=== PATIENT | female | born 2000 | race Caucasian/White ===

== ENCOUNTER 2020-02-12 14:18 | Outpatient (REF) | payer MEDICAID, SELFPAY ==
[2020-02-15 18:59] LABS: SARS-CoV-2 RNA Undetected (Undetected); SARS-CoV-2 Specimen Source Nasopharynx
== END 2020-02-12 14:38 ==
LOC: NCHCN 14:18
PROVIDERS: PCP Family Medicine; Visit Provider Nurse Practitioner Family
DX: Z20.828 Contact with and (suspected) exposure to other viral communicable diseases (principal)
CPT/HCPCS: U0003

== ENCOUNTER 2021-04-05 17:04 | Outpatient (REF) | payer MEDICAID, SELFPAY ==
--- NOTE | 2021-04-05 14:20 | PAPFT_PTH ---
PATIENT: Rajinder Vazquez LOC: [facility] U#:[id number] AGE/SX: 21/F ROOM: RE04/05/[address]: Isabel Dorman : 2000 BED: DIS: 04/05/2021 SPEC #: [id number] RECD: 04/05/21 18:53 STATUS: TED REQ #: [id number] ONEAL: 04/05/21 14:[address]: Isabel Dorman DEPT: [facility] Cytology RECD BY: Maryanne Chao Tissues: 1 - CX/ENDOCX FOR PAP SMEARS Procedures: PAP THIN PREP/[facility] Screening Comments: [id number] (CHLAMYDIA/GC)
[2021-04-06 15:08] LABS: Chlamydia Result Negative (Negative); GC Result Negative (Negative)
== END 2021-04-05 17:05 | disposition home or self-care (01) ==
LOC: NCHCN 17:04
PROVIDERS: PCP Family Medicine; Visit Provider Family Medicine
DX: Z12.4 Encounter for screening for malignant neoplasm of cervix (principal); Z11.3 Encounter for screening for infections with a predominantly sexual mode of transmission
CPT/HCPCS: 87491; 87591; 88142

== ENCOUNTER 2022-04-17 15:27 | Outpatient (REF) | payer MEDICAID, SELFPAY ==
[2022-04-18 15:11] LABS: Chlamydia Result Negative (Negative); GC Result Negative (Negative)
== END 2022-04-17 15:28 | disposition home or self-care (01) ==
LOC: NCHCN 15:27
PROVIDERS: PCP Family Medicine; Visit Provider Family Medicine
DX: Z11.3 Encounter for screening for infections with a predominantly sexual mode of transmission (principal)
CPT/HCPCS: 87491; 87591

== ENCOUNTER 2022-05-09 18:03 | Outpatient (REF) | payer MEDICAID, SELFPAY ==
[2022-05-11 09:30] LABS: Hepatitis C Ab w Rflx HCV PCR Negative (Negative)
[2022-05-11 09:51] LABS: HIV-1/2 Ag & Ab Screen Negative (Negative)
== END 2022-05-09 18:04 | disposition home or self-care (01) ==
LOC: NCHCN 18:03
PROVIDERS: PCP Family Medicine; Visit Provider Family Medicine
DX: Z11.4 Encounter for screening for human immunodeficiency virus [HIV] (principal); Z11.59 Encounter for screening for other viral diseases
CPT/HCPCS: 86803; 87389

== ENCOUNTER 2022-12-17 01:58 | Outpatient (CLI) | payer MEDICAID, SELFPAY ==
--- NOTE | 2022-12-17 | DI.MRI_ITS ---
Exam(s) MR LOWER JOINT RT WO EXAM: MR LOWER JOINT RT WO CLINICAL HISTORY: RT KNEE PAIN, M25.561,NOT RESPONSIVE TO PT,? PCL INJURY. TECHNIQUE: Multiplanar multisequence MRI was performed. COMPARISON: CR RIGHT KNEE 3 VIEWS from 01/09/2011 FINDINGS: BONES: There is no fracture or contusion pattern. JOINTS: Articular cartilage is unremarkable. No effusion is present. TENDONS: Extensor mechanism: Unremarkable. Medial retinaculum: Unremarkable. Lateral retinaculum: Unremarkable. Popliteus: Unremarkable. MUSCLES: Unremarkable. MENISCI: The medial meniscus is unremarkable. The lateral meniscus is unremarkable. SOFT TISSUES: There is a 2.5 x 5.2 mm popliteal cyst. LIGAMENTS: Anterior Cruciate: Unremarkable. Posterior Cruciate: The posterior cruciate ligament is intact. There is mild hyperintense signal see n within the PCL which may represent a sprain. Medial Collateral:Unremarkable. Lateral Collateral: Unremarkable. OTHER: IMPRESSION: 1. Mild hyperintense signal seen in the PCL which may represent a sprain. No evidence of a complete tear. 2. No other findings to suggest meniscal or ligament tear. DATA REPOSITORY:
== END 2022-12-17 02:18 ==
LOC: DI 01:59
PROVIDERS: PCP Family Medicine; Visit Provider Family Medicine
DX: M25.561 Pain in right knee (principal)
CPT/HCPCS: 73721

== ENCOUNTER 2024-08-21 10:35 | Outpatient (REF) | payer SELFPAY ==
--- NOTE | 2024-08-21 09:20 | PAPFT_PTH ---
PATIENT: Rajinder Vazquez LOC: [facility] U#:[id number] AGE/SX: 24/F ROOM: RE08/21/[address]: Isabel Dorman : 2000 BED: DIS: 08/21/2024 SPEC #: [id number] RECD: 08/21/24 17:24 STATUS: TED REArthur #: [id number] ONEAL: 08/21/24 09:[address]: Isabel Dorman DEPT: [facility] Cytology RECD BY: Maryanne Chao Tissues: 1 - CX/ENDOCX FOR PAP SMEARS Procedures: PAP THIN PREP/[facility] Screening Comments: [id number]
== END 2024-08-21 10:36 | disposition home or self-care (01) ==
LOC: NCHCN 10:35
PROVIDERS: PCP Family Medicine; Visit Provider Family Medicine
DX: Z12.4 Encounter for screening for malignant neoplasm of cervix (principal)
CPT/HCPCS: 88142